=== PATIENT | female | born 1950 | race Caucasian/White ===

== ENCOUNTER 2022-07-13 13:33 | Outpatient (CLI) | payer MEDICARE, SELFPAY ==
--- NOTE | 2022-07-13 13:56 | ECHO_ITS ---
Patient Info Name: Lila Krishna Age: 72 years : 1950 Gender: Female Ht: 64 in Wt: 212 lbs BSA: 2.13 m2 HR: 88 bpm BP: 157 / 109 mmHg Technical Quality: Poor Exam Date: 07/13/2022 2:04 PM Exam Location: [facility] Patient Status: Outpatient Admit Date: 07/13/2022 Staff Ordering Physician: Kendra Dominguez PA-C Service Order Taker: Shadia Al RDCS Attending Provider: Kendra Dominguez PA-C Referring Physician: Brady Ramos Exam Type: CA echo dop color flow w con Study Info Indications I51.7 - Cardiomegaly Complete two-dimensional, color flow and Doppler transthoracic echocardiogram is performed with contrast to opacify the left ventricle and to improve the deliniation of the left ventricle endocardial borders. Contrast/Agitated Saline Contrast/Ag. Saline: Definity Amount: 4.00 ml Administered By: Shadia Al RDCS Existing IV Access: No New IV Access: Inner Forearm and Right Site Condition: Site dressing applied, IV removed and No extravasation Reason for Poor Study: poor echocardiographic windows Summary 1. Definity contrast administered improved wall motion interpretation. 2. Left ventricular systolic function is severely globally reduced, estimated at 25-30%. 3. Left ventricular chamber dimension is severely enlarged. 4. The left ventricular diastolic function is grade III diastolic dysfunction. 5. E/e' 26 is elevated. 6. Left atrial chamber dimension is severely enlarged. 7. There is mild aortic valve sclerosis. 8. The mitral valve has moderately calcified annulus. 9. There is trace mitral valve regurgitation. 10. There is trace tricuspid valve regurgitation. 11. Mild pulmonary hypertension, estimated pulmonary arterial systolic pressure is 46 mmHg. 12. There is trivial pericardial effusion. Left Ventricle E/e' 26 is elevated. Definity contrast administered improved wall motion interpretation. Left ventricular systolic function is severely globally reduced, estimated at 25-30%. Left ventricular chamber dimension is severely enlarged. The left ventricular diastolic function is grade III diastolic dysfunction. Right Ventricle Right ventricular systolic function is normal and with normal TAPSE 2.6 cm. Right ventricular chamber dimension is normal. Left Atria Left atrial chamber dimension is severely enlarged. Right Atria Right atrial chamber dimension is normal. Aortic Valve The aortic valve is trileaflet. There is mild aortic valve sclerosis. There is no aortic valve stenosis. There is no aortic valve regurgitation. Pulmonic Valve There is no pulmonic regurgitation. Mitral Valve The mitral valve has moderately calcified annulus. There is no mitral valve stenosis. There is trace mitral valve regurgitation. Tricuspid Valve There is trace tricuspid valve regurgitation. Mild pulmonary hypertension, estimated pulmonary arterial systolic pressure is 46 mmHg. Pericardium/Pleural There is trivial pericardial effusion. Inferior Vena Cava Normal inferior vena cava with >50% collapse upon inspiration consistent with normal right atrial pressure, 5 mmHg. Aorta The aortic root size at the sinus of Valsalva is normal. Left Ventricular Outflow Tract Name Value Normal
[2022-07-13] MEDS: PERFLUTREN LIPID MICROSPHERES 1.5 ML VIAL DILUTED TO 10 ML TOTAL VOLUME IV PUSH (14:50)
== END 2022-07-13 13:34 | disposition home or self-care (01) ==
PROVIDERS: PCP Family Medicine; Referring Provider Internal Medicine Cardiovascular Disease; Visit Provider Physician Assistant Medical
DX: I51.7 Cardiomegaly (principal); I08.3 Combined rheumatic disorders of mitral, aortic and tricuspid valves
CPT/HCPCS: C8929; Q9957

== ENCOUNTER 2022-08-05 01:26 | Day surgery (SDC) | payer MEDICARE, SELFPAY ==
[2022-08-04 14:00] VITALS: BMI 34.7
[2022-08-05] VITALS (9 sets, daily range): BP systolic 101–134; BP diastolic 56–88; PULSE 55–72; RESP 12–20; TEMP 36.3; O2SAT 93–97; BMI 36.7
[2022-08-05 08:44] LABS: Basophils Absolute Auto 0.1 K/mm3 (0.0-0.1); Basophils Percent Auto 0.7 % (0.2-1.2); Eosinophils Absolute Auto 0.4 K/mm3 (0-0.3); Eosinophils Percent Auto 4.4 % (0-4.4); Hematocrit 39.2 % (37.0-47.0); Hemoglobin 12.5 g/dL (12.0-15.0); Immature Granulocyte Absolute 0.02 K/mm3 (0.00-0.031); Immature Granulocyte Percent A 0.2 % (0-0.5); Lymphocytes Absolute Auto 1.58 K/mm3 (0.9-3.2); Lymphocytes Percent Auto 19.4 % (18.3-44.2); Mean Corpuscular HGB Conc 31.9 g/dl (32-36); Mean Corpuscular Hemoglobin 25.9 pg (26-34); Mean Corpuscular Volume 81.2 fl (80-100); Mean Platelet Volume 9.8 fl (7.4-10.4); Monocytes Absolute Auto 0.8 K/mm3 (0.1-0.6); Monocytes Percent Auto 9.6 % (2.6-8.5); Neutrophils Absolute Auto 5.3 K/mm3 (1.3-6.7); Neutrophils Percent Auto 65.7 % (45.5-73.1); Platelet Count Result 368 k/mm3 (150-375); Red Blood Count 4.83 M/mm3 (4.2-5.4); Red Cell Distribution Width 16.2 % (11.5-14.5); White Blood Count 8.1 K/mm3 (4.5-10.0)
[2022-08-05 08:53] LABS: Anion Gap 5 mmol/L (8-16); Blood Urea Nitrogen 24 mg/dL (7-17); Carbon Dioxide 26 mmol/L (22-30); Chloride 106 mmol/L (98-107); Estimated CRCL calculation 81 ml/min; Estimated Glomerular Filt Rate > 60; Glucose 109 mg/dL (65-110); Potassium 3.9 mmol/L (3.4-5.0); Sodium 137 mmol/L (137-145)
[2022-08-05 08:55] LABS: Prothrombin Time 13.1 Seconds (11.1-14.7)
--- NOTE | 2022-08-05 09:58 | WPDHPUPDATE1 ---
History and Physical Update Update Date/Time: 08/05/22 09:58 History and Physical has been reviewed, including an updated exam of the patient. There are NO changes in the patient's condition. Risks, benefits, and alternatives have been discussed and questions answered. Patient agrees to proceed with procedure.
--- NOTE | 2022-08-05 09:58 | WPDMODSED ---
Moderate Sedation Note-Pt Data Patient Data Diagnosis: Cardiomyopathy Present Complaint: Cardiomyopathy Procedure to be performed/Plan: Coronary angiography, LHC, +/- PCI Allergies Allergy/AdvReac Type Severity Reaction Status Date / Time cefaclor Allergy Intermediate Rash Verified 08/05/22 08:43 erythromycin base AdvReac Mild Gastrointestinal Verified 08/05/22 08:43 Upset Home Medications Medication Instructions Recorded Confirmed Type metformin 1,000 mg tablet 1,000 mg PO DAILY 11/25/21 08/05/22 History mometasone 0.1 % topical cream 1 applic topical DAILY PRN skin 04/22/22 08/05/22 Rx irritation #45 grams montelukast 10 mg tablet 10 mg PO DAILY #90 tabs 07/08/22 08/05/22 Rx (Singulair) cholecalciferol (vitamin D3) 125 125 mcg PO DAILY #90 caps 07/12/22 08/05/22 Rx mcg (5,000 unit) capsule ergocalciferol (vitamin D2) 1,250 1,250 mcg PO WEEKLY #30 caps 07/12/22 08/05/22 Rx mcg (50,000 unit) capsule ezetimibe 10 mg tablet (Zetia) 10 mg PO DAILY #90 tabs 07/12/22 08/05/22 Rx furosemide 40 mg tablet 40 mg PO QAM #30 tabs 07/12/22 08/05/22 Rx carvedilol 3.125 mg tablet (Coreg) 3.125 mg PO Q12H #180 tabs 07/15/22 08/05/22 Rx sacubitril 24 mg-valsartan 26 mg 1 tablet PO BID #60 tabs 07/15/22 08/04/22 Rx tablet (Entresto) aspirin 81 mg tablet,delayed 81 mg PO DAILY 07/23/22 08/05/22 History release albuterol sulfate 90 mcg/actuation See Rx Instructions .Route 08/04/22 08/05/22 History aerosol inhaler (Ventolin HFA) .COMPLEX PRN Shortness Of Breath fluticasone furoate 200 1 inh inhalation DAILY PRN 08/04/22 08/05/22 History mcg-vilanterol 25 mcg/dose Shortness Of Breath inhalation powder (Breo Ellipta) meloxicam 15 mg tablet 15 mg PO DAILY PRN Brusitis 08/04/22 08/05/22 History Current Medications: Active Medications Sodium Chloride (Normal Saline Iv) 500 mls @ 100 mls/hr IV CONT .Q5H [facility] Sedation/Anesthesia: No previous sedation/anesthesia problems (including family history). [facility] Past Medical History Medical History Allergies Arthritis Asthma Breast cancer Bronchitis Diabetes URI (upper respiratory infection) Surgical History Surgical History H/O bilateral mastectomy H/O: hysterectomy History of tonsillectomy Hx of knee surgery Family History Family History Mother Heart disease Social History Social History Smoking status: Never smoker Second hand tobacco smoke exposure: No Alcohol intake: never Substance use: never Substance use type: does not use Living arrangements: alone Occupation/Education: retired Gender identity (if verbalized by the patient): Female Spiritual care concerns: No Agree to blood products: Yes Mod Sed Physical Exam Physical Exam Pre Procedural Exam: Normal: Appearance, Lungs, Heart Rate, Heart Rhythm, Neuro Exam, Abdomen, Extremities and Skin Hours since solid foods: 12 Hours since liquid intake: 8 Mallampati Classification: class III Internal Medicine - PN: Obj Da Vital Signs Vital Signs: Vital Signs - 24 hr 08/05/22 08:48 Temperature 36.3 C L Pulse Rate 62 Respiratory Rate 17 Blood Pressure 134/74 Pulse Oximetry 96 Oxygen Delivery Room Air Meds/Results Medications: Active Medications Generic Name Dose Route Start Last Admin Trade Name Freq PRN Reason Stop Dose Admin Sodium Chloride 500 mls @ 100 mls/hr 08/05/22 08:30 Normal Saline Iv IV CONT .Q5H [facility] 08/05/22 08:24 08/05/22 08:24 Labs: Laboratory Results - last 24 hr 08/05/22 08/05/22 08/05/22 08:24 08:24 08:24 WBC 8.1 RBC 4.83 Hgb 12.5 Hct 39.2 MCV 81.2 MCH 25.9 L MCHC 31.9 L RDW 16.2 H Plt Count 368 MPV 9.8 Immature Gran % (Auto) 0.2
--- NOTE | 2022-08-05 11:11 | WPDCARDPROC ---
Cardiac Cath Procedure Note Date of procedure:: 08/05/22 Performing physician:: CATHETERIZATION LABORATORY REPORT Procedure Date: 08/05/2022 Biostatistics Teacher: Anton Vasquez M.D., [facility]? Referring Physician: Dr. Ramos ? Anesthesia: Versed and Fentanyl were ordered and given in my presence at 10:32, procedure ended at 11:06. Supervision of nurse monitored moderate sedation with Versed and Fentanyl was provided for 34 minutes. Total of Versed 2mg and Fentanyl 50mcg were administered by the Microbiology Quality Control Technician RN Lara Palencia. Pre-op Diagnosis: Coronary artery disease Post-op Diagnosis: 1. Obstructive diagonal branch vessel disease as noted in findings. Unlikely to be etiology for patient's heart failure with reduced ejection fraction. Mild nonobstructive disease of LAD, LCX/OM, and RCA. 2. Right dominant coronary artery system. Procedure(s): 1. Moderate sedation 2. Ultrasound guided access of the right radial artery 3. Coronary angiography Access Site: Right radial artery Brief History and Clinical Indications: Patient is a 72-year-old female who is referred for [facility] for ischemic evaluation for heart failure with reduced ejection fraction. All risks, benefits and alternatives to left heart catheterization with or without percutaneous coronary intervention was discussed at length with the patient. Risk of complications including but not limited to bleeding, infection, arrhythmia, stroke, worsening kidney function, blood loss, groin hematoma, limb loss, emergency coronary artery bypass grafting, and even were discussed with the patient and all questions were answered. The patient understood and wished to proceed. Time out called, patient name, date of , medical record number, allergies, procedure performed, identify Biostatistics Teacher, patient and staff member concurred with accurate data, procedure carried on. Findings: LEFT HEART CATHETERIZATION FINDINGS: 1. Left main: The left main coronary artery is widely patent without any significant obstructive disease. 2. Left anterior descending: The LAD has mild diffuse disease without any significant obstructive angiographic disease. The first diagonal branch has a high proximal bifurcation into two branches. The upper branch is small caliber and with mild disease. The lower branch is a medium caliber vessel with a proximal 90% stenosis; remainder of this lower branch has mild diffuse disease. The second diagonal vessel is a small caliber vessel without obstructive disease. 3. Left circumflex: The left circumflex artery and the main marginal branches have diffuse disease without any significant obstructive angiographic disease. 4. Right coronary artery: Large caliber vessel. The RCA is the dominant vessel. The RCA has an anterior takeoff. The proximal RCA has mild luminal irregularities. The mid and distal RCA have mild diffuse disease without any significant obstructive angiographic disease. RPDA and RPLV have luminal irregularities without any significant obstructive angiographic disease. Description of Procedure: Informed consent signed and placed in the chart. Patient transferred to lab associate room. Prepped and draped in usual sterile fashion. 2% lidocaine injected subcutaneously in right wrist area. 22-gauge venipuncture catheter used to access the right radial artery with the Seldinger technique. 6-FR slender sheath placed in right radial artery. Nitroglycerine and Verapamil were given intraarterial through the sheath. Versacore wire advanced under fluoroscopy 5F Tig 4 diagnostic catheter engaged Left Main Coronary Artery. 5F JR 4 diagnostic catheter engaged Right Coronary Artery Multiple orthogonal angiogram obtained and reviewed Unable to cross the aortic valve from right radial access due to aortic tortuosity making it difficult to manipulate catheter. Hemostasis was achieved by application of TR band. ? Assessment: 1. Obstructive diagonal branch vessel disease as noted in findi
== END 2022-08-05 14:30 | disposition home or self-care (01) ==
PROVIDERS: PCP Family Medicine; Referring Provider Physician Assistant Medical; Visit Provider Internal Medicine
PROC: (CPT 93454; principal; 2022-08-05 10:00)
DX: I25.10 Atherosclerotic heart disease of native coronary artery without angina pectoris (principal); I42.9 Cardiomyopathy, unspecified; E11.9 Type 2 diabetes mellitus without complications; J45.909 Unspecified asthma, uncomplicated; Z79.84 Long term (current) use of oral hypoglycemic drugs; Z79.82 Long term (current) use of aspirin; Z79.51 Long term (current) use of inhaled steroids; Z85.3 Personal history of malignant neoplasm of breast
CPT/HCPCS: 36415; 80048; 85025; 85610; 93454; A9270; C1769; C1887; C1894; J1644; J2250; J3010; J7040

== ENCOUNTER 2022-10-20 07:11 | Outpatient (CLI) | payer MEDICARE, SELFPAY ==
--- NOTE | 2022-10-20 07:28 | ECHO_ITS ---
Patient Info Name: Lila Krishna Age: 72 years : 1950 Gender: Female Ht: 64 in Wt: 213 lbs BSA: 2.13 m2 HR: 58 bpm BP: 160 / 80 mmHg Heart Rhythm: Sinus Rhythm Technical Quality: Fair Exam Date: 10/20/2022 7:47 AM Exam Location: [facility] Patient Status: Outpatient Admit Date: 10/20/2022 Staff Ordering Physician: Brady Ramos DO Wire Inspector: Marianne Nazario RDCS Attending Provider: Brady Ramos DO Referring Physician: Richard XAVIER; Exam Type: CA echo dop color flow w con Study Info Indications I42.9 - Cardiomyopathy, unspecified Complete two-dimensional, color flow and Doppler transthoracic echocardiogram is performed with contrast to opacify the left ventricle and to improve the deliniation of the left ventricle endocardial borders. Strain analysis performed. Contrast/Agitated Saline Contrast/Ag. Saline: Definity Amount: 2.00 ml Administered By: Marianne Nazario RDCS New IV Access: Left Site Condition: IV removed Summary 1. Left ventricular chamber dimension is moderately enlarged. 2. Definity contrast administered improved wall motion interpretation. 3. Left ventricular systolic function is normal, estimated at 55-60%. 4. The left ventricular diastolic function is grade I diastolic dysfunction. 5. E/e' 17 is elevated. 6. Global longitudinal strain is abnormal at -13.2%. 7. Left atrial chamber dimension is moderately enlarged. 8. There is mild aortic valve sclerosis. 9. The mitral valve has moderately calcified annulus. 10. There is trace tricuspid valve regurgitation. 11. No pulmonary hypertension, estimated pulmonary arterial systolic pressure is 26 mmHg. 12. There is trace pulmonic regurgitation. 13. There is trivial pericardial effusion. Left Ventricle E/e' 17 is elevated. Global longitudinal strain is abnormal at -13.2%. Definity contrast administered improved wall motion interpretation. Left ventricular chamber dimension is moderately enlarged. Left ventricular systolic function is normal, estimated at 55-60%. The left ventricular diastolic function is grade I diastolic dysfunction. Right Ventricle Right ventricular chamber dimension is normal. Right ventricular systolic function is normal. Left Atria Left atrial chamber dimension is moderately enlarged. Right Atria Right atrial chamber dimension is normal. Aortic Valve The aortic valve is trileaflet. There is mild aortic valve sclerosis. There is no aortic valve stenosis. There is no aortic valve regurgitation. Pulmonic Valve There is trace pulmonic regurgitation. Mitral Valve The mitral valve has moderately calcified annulus. There is no mitral valve stenosis. There is no mitral valve regurgitation. Tricuspid Valve There is trace tricuspid valve regurgitation. No pulmonary hypertension, estimated pulmonary arterial systolic pressure is 26 mmHg. Pericardium/Pleural There is trivial pericardial effusion. Inferior Vena Cava Normal inferior vena cava with >50% collapse upon inspiration consistent with normal right atrial pressure, 5 mmHg. Aorta The aortic root size at the sinus of Valsalva is normal. Left Ventricular Outflow Tract Name Value Normal LVOT 2D LVOT Diameter 2.02 cm LVOT Doppler
[2022-10-20] MEDS: PERFLUTREN LIPID MICROSPHERES 1.5 ML VIAL DILUTED TO 10 ML TOTAL VOLUME IV PUSH (08:45)
== END 2022-10-20 07:12 | disposition home or self-care (01) ==
LOC: ANHCARD 07:12
PROVIDERS: PCP Family Medicine; Visit Provider Internal Medicine Cardiovascular Disease
DX: I42.9 Cardiomyopathy, unspecified (principal)
CPT/HCPCS: C8929; Q9957

== ENCOUNTER 2024-09-06 02:39 | Day surgery (SDC) | payer MEDICARE, SELFPAY ==
[2024-08-31 10:51] VITALS: BMI 38.2
[2024-09-06 12:29] VITALS: BP 170/74; PULSE 66; RESP 18; TEMP 36.1; O2SAT 98
--- NOTE | 2024-09-06 12:41 | P.PNAN_ITS ---
Anes - Initial Pre Proc Eval Procedure: Operation Date: 09/06/24 13:00 Proposed Procedures p Colonoscopy - Jarrell Mcdonald MD Date/Time: 09/06/24 12:41 Surgeon: Jarrell Mcdonald MD Pre Op Diagnosis: Other fecal abnormalities Patient Data Age: 74 Gender: F Height: 1.65 m Weight: 105.7 kg Last Vital Signs Temp 97 F L 09/06/24 12:29 Pulse 66 09/06/24 12:29 Resp 18 09/06/24 12:29 BP 170/74 H 09/06/24 12:29 Pulse Ox 98 09/06/24 12:29 O2 Del Method Room Air 09/06/24 12:29 Allergies Allergy/AdvReac Type Severity Reaction Status Date / Time cefaclor Allergy Intermediate Rash Verified 08/31/24 10:43 erythromycin base AdvReac Mild Gastrointestinal Verified 08/31/24 10:43 Upset Home Medications ?Medication ?Instructions ?Recorded ?Confirmed ?Type aspirin 81 mg tablet,delayed 81 mg PO DAILY 07/23/22 08/31/24 History release fluticasone furoate 200 1 inh inhalation DAILY PRN 08/11/22 08/31/24 Rx mcg-vilanterol 25 mcg/dose Shortness Of Breath #60 ea inhalation powder (Breo Ellipta) cetirizine 10 mg tablet (Zyrtec) 10 mg PO DAILY PRN allergy 02/21/23 08/31/24 Rx symptoms #90 tabs ketoconazole 2 % topical cream 1 applic topical BID #60 grams 10/10/23 08/31/24 Rx cholecalciferol (vitamin D3) 125 125 mcg PO DAILY #90 caps 10/18/23 08/31/24 Rx mcg (5,000 unit) capsule albuterol sulfate 90 mcg/actuation 1 puff inhalation Q4H PRN 12/27/23 08/31/24 Rx aerosol inhaler (Ventolin HFA) Shortness Of Breath #8.5 grams mometasone 0.1 % topical cream 1 applic topical DAILY #45 grams 05/01/24 08/31/24 Rx montelukast 10 mg tablet 10 mg PO DAILY #90 tabs 06/21/24 08/31/24 Rx metformin 1,000 mg tablet 1,000 mg PO DAILY #90 tabs 07/12/24 08/31/24 Rx fluconazole 150 mg tablet 150 mg PO Q72H #2 tabs 07/25/24 08/31/24 Rx pravastatin 80 mg tablet 80 mg PO DAILY #90 tabs 07/25/24 08/31/24 Rx sacubitril 24 mg-valsartan 26 mg 1 tablet PO BID #180 tabs 07/25/24 08/31/24 Rx tablet (Entresto) furosemide 40 mg tablet See Rx Instructions .Route 07/26/24 08/31/24 Rx .COMPLEX #90 tabs carvedilol 3.125 mg tablet 3.125 mg PO Q12H #180 tabs 07/30/24 08/31/24 Rx calcium citrate 600 mg (2.4 x 250 mg calcium) PO 08/15/24 08/31/24 Rx DAILY #1 tablet sodium sul 1.479 gram-potas ch See Rx Instructions PO PER PKG DIR 08/20/24 08/31/24 Rx 0.188 gram-magnes sul 0.225 gram #24 tabs tablet (Sutab) Patient hx anesthesia problems: none Family hx anesthesia problems: none Results Review: All pre-operative results and documents have been reviewed as part of the pre- operative evaluation. [facility], [facility] Past Medical History Medical History (Updated 09/05/24 @ 14:35 by Rafiq Sullivan DO) CHF (congestive heart failure) EF 55-60% Lower extremity edema Mild, intermittent-uses PRN Lasix COVID-19 Cardiomyopathy COVID induced Enlarged heart Bronchitis Diabetes Breast cancer Arthritis Asthma Allergies Surgical History Surgical History History of right heart catheterization (RHC) Hx of knee surgery H/O bilateral mastectomy History of tonsillectomy H/O: hysterectomy Family History Family History Mother Heart disease Social History Social History Smoking status: Never smoker Second hand tobacco smoke exposure: No Alcohol intake: never Substance use: never Substance use type: does not use Do You Feel Safe in your Home?: Yes Lack of Transportation: No Lack of Food: Never True Current Housing: I Have Housing Concerned About Future Housing: No Difficulty Paying Gas/Electric Bills: No Difficulty Paying for Meds: No Currently Unemployed: No Education: High School Diploma/GED Difficulty w/ Childcare or Family Care: No Living arrangements: with family Occupation/Education: retired Gender identity (if verbalized by the patient): Female Spiritual care concerns: No Agree to blood products: Yes Anes - Eval Final PreProcedure Day of Procedure 09/06/24 12:41 Patient weight: obese Heart: regular rate and rhythm Lungs: clear to auscultation Airway: Mallampati scale class III Neurological: alert and oriented Last oral intake: >/= 8 hours ASA classification: III Emergent: no Anesthetic plan: proceed Anesthesia type and monitoring: general GIVS and standard monitoring Results Review: All pre-operative results and documents have been reviewed as part of the pre- operative evaluation. Informed Consent: The patient's anesthetic plan and its attendant risks and benefits were discussed with the patient/family/POA. Questions were solicited and answers provided to the satisfaction of the patient/family/POA.
[2024-09-06] MEDS: LACTATED RINGERS 1,000 ML 150 ML IV CONT (12:44)
[2024-09-06 12:45] LABS: Glucose Point of Care 103 mg/dl (65-105)
--- NOTE | 2024-09-06 13:14 | PM.HPGS ---
History of Present Illness History of Present Illness Consent: Risks, benefits, and alternatives have been discussed and questions answered. Patient agrees to proceed with procedure. Chief complaint: Other fecal abnormalities Narrative: Lila Krishna is a 74 year old female here with + cologuard, had colonoscopy more than 25 years ago Review of Systems Review of Systems: All systems reviewed & are unremarkable except as noted in HPI and below PMFSH Past Medical History Medical History (Updated 09/06/24 @ 13:14 by Jarrell Mcdonald MD) Positive colorectal cancer screening using Cologuard test CHF (congestive heart failure) EF 55-60% Lower extremity edema Mild, intermittent-uses PRN Lasix COVID-19 Cardiomyopathy COVID induced Enlarged heart Bronchitis Diabetes Breast cancer Arthritis Asthma Allergies Surgical History Surgical History History of right heart catheterization (RHC) Hx of knee surgery H/O bilateral mastectomy History of tonsillectomy H/O: hysterectomy Family History Family History Mother Heart disease Social History Social History Smoking status: Never smoker Second hand tobacco smoke exposure: No Alcohol intake: never Substance use: never Substance use type: does not use Do You Feel Safe in your Home?: Yes Lack of Transportation: No Lack of Food: Never True Current Housing: I Have Housing Concerned About Future Housing: No Difficulty Paying Gas/Electric Bills: No Difficulty Paying for Meds: No Currently Unemployed: No Education: High School Diploma/GED Difficulty w/ Childcare or Family Care: No Living arrangements: with family Occupation/Education: retired Gender identity (if verbalized by the patient): Female Spiritual care concerns: No Agree to blood products: Yes Meds Home Medications and Allergies Home Medications ?Medication ?Instructions ?Recorded ?Confirmed ?Type aspirin 81 mg tablet,delayed 81 mg PO DAILY 07/23/22 08/31/24 History release fluticasone furoate 200 1 inh inhalation DAILY PRN 08/11/22 08/31/24 Rx mcg-vilanterol 25 mcg/dose Shortness Of Breath #60 ea inhalation powder (Breo Ellipta) cetirizine 10 mg tablet (Zyrtec) 10 mg PO DAILY PRN allergy 02/21/23 08/31/24 Rx symptoms #90 tabs ketoconazole 2 % topical cream 1 applic topical BID #60 grams 10/10/23 08/31/24 Rx cholecalciferol (vitamin D3) 125 125 mcg PO DAILY #90 caps 10/18/23 08/31/24 Rx mcg (5,000 unit) capsule albuterol sulfate 90 mcg/actuation 1 puff inhalation Q4H PRN 12/27/23 08/31/24 Rx aerosol inhaler (Ventolin HFA) Shortness Of Breath #8.5 grams mometasone 0.1 % topical cream 1 applic topical DAILY #45 grams 05/01/24 08/31/24 Rx montelukast 10 mg tablet 10 mg PO DAILY #90 tabs 06/21/24 08/31/24 Rx metformin 1,000 mg tablet 1,000 mg PO DAILY #90 tabs 07/12/24 08/31/24 Rx fluconazole 150 mg tablet 150 mg PO Q72H #2 tabs 07/25/24 08/31/24 Rx pravastatin 80 mg tablet 80 mg PO DAILY #90 tabs 07/25/24 08/31/24 Rx sacubitril 24 mg-valsartan 26 mg 1 tablet PO BID #180 tabs 07/25/24 08/31/24 Rx tablet (Entresto) furosemide 40 mg tablet See Rx Instructions .Route 07/26/24 08/31/24 Rx .COMPLEX #90 tabs carvedilol 3.125 mg tablet 3.125 mg PO Q12H #180 tabs 07/30/24 08/31/24 Rx calcium citrate 600 mg (2.4 x 250 mg calcium) PO 08/15/24 08/31/24 Rx DAILY #1 tablet sodium sul 1.479 gram-potas ch See Rx Instructions PO PER PKG DIR 08/20/24 08/31/24 Rx 0.188 gram-magnes sul 0.225 gram #24 tabs tablet (Sutab) Allergies Allergy/AdvReac Type Severity Reaction Status Date / Time cefaclor Allergy Intermediate Rash Verified 08/31/24 10:43 erythromycin base AdvReac Mild Gastrointestinal Verified 08/31/24 10:43 Upset Vital Signs Vital Signs - 24 hr 09/06/24 12:29 Temperature 97 F L Pulse Rate 66 Respiratory Rate 18 Blood Pressure 170/74 H Pulse Oximetry 98 Oxygen Delivery Room Air Exam Const: General: comfortable and no acute distress HENMT: Face/Nose/Sinus: Normal nares present Eyes: General: appearance normal, both eyes and all related structures Neck: Neck: no JVD Resp: Auscultation: clear to auscultation bilaterally Cardio: Rate: regular rate Rhythm: regular rhythm GI: Inspection: non-distended GI Palp: Yes Soft to palpation Skin: General skin exam: normal color Neuro: General: gait normal Speech: normal speech Extrem: General: normal to inspection Psych: Mental Status: mental status grossly normal Assessment and Plan Assessment and plan (1) Positive colorectal cancer screening using Cologuard test: Code(s): R19.5 - Other fecal abnormalities Status: Acute Assessment and Plan: colonoscopy
[2024-09-06 14:01] VITALS: BP 104/64; PULSE 74; RESP 20; O2SAT 96
--- NOTE | 2024-09-06 14:04 | SUR.OPER ---
DR REYES NOTIFIED SIGMOID POLYP UNRETRIEVED. NO NEW ORDERS.
[2024-09-06 14:11] VITALS: BP 105/63; PULSE 61; RESP 18; O2SAT 95
[2024-09-06 14:21] VITALS: BP 127/66; PULSE 70; RESP 18; O2SAT 97
== END 2024-09-06 14:42 | disposition home or self-care (01) ==
PROVIDERS: PCP Physician Assistant Medical; Referring Provider Physician Assistant Medical; Visit Provider Internal Medicine Gastroenterology
PROC: 0DJD8ZZ Inspection of Lower Intestinal Tract, Via Natural or Artificial Opening Endoscopic (ICD-10-PCS; CPT 45378; principal; 2024-09-06 13:00)
DX: D12.2 Benign neoplasm of ascending colon (principal); D12.3 Benign neoplasm of transverse colon; K64.8 Other hemorrhoids; K57.30 Diverticulosis of large intestine without perforation or abscess without bleeding; E11.9 Type 2 diabetes mellitus without complications; J45.909 Unspecified asthma, uncomplicated; I50.9 Heart failure, unspecified; M19.90 Unspecified osteoarthritis, unspecified site; E66.9 Obesity, unspecified; Z68.38 Body mass index [BMI] 38.0-38.9, adult; Z79.82 Long term (current) use of aspirin; Z79.51 Long term (current) use of inhaled steroids; Z79.84 Long term (current) use of oral hypoglycemic drugs; Z98.890 Other specified postprocedural states; Z85.3 Personal history of malignant neoplasm of breast; Z86.79 Personal history of other diseases of the circulatory system; Z82.49 Family history of ischemic heart disease and other diseases of the circulatory system
CPT/HCPCS: 45385; 82948; 88305; J2003; J2704; J7120